=== PATIENT | male | born 1965 | race Caucasian/White ===

== ENCOUNTER 2019-07-10 22:00 | Emergency (ER) | payer BC ==
[~2019-07-10] VITALS: Ht 182.9 cm; Wt 90.7 kg
[~2019-07-10 22:00] MED LIST: COUMADIN 5 MG TA5 M1 PO; ENOXAPARIN60 MG/0.6 SQ; HYDROCODON-ACE1 EAC7 PO; KEFLEX500 MG PO; NOHOMEMEDICATIONS; PERCOCET 5-3251 EACH PO; XARELTO15 MG PO
[2019-07-10] MEDS ORDERED: NORCO 5-325 TA1 EAC1 PO (22:33)
[2019-07-10] MEDS ORDERED: CIPROFLOXIN HC2.5 M1 OTIC (22:33)
[2019-07-10] MEDS ORDERED: AMOXICILLIN 50500 MG PO (22:33)
[2019-07-10 23:00] VITALS: BP 141/80
== END 2019-07-10 23:01 | disposition home or self-care (01) ==
LOC: M.ERS 22:00
DX: H60.92 Unspecified otitis externa, left ear (principal); H66.92 Otitis media, unspecified, left ear; Z98.890 Other specified postprocedural states; Z89.022 Acquired absence of left finger(s)